=== PATIENT | male | born 1975 | race Caucasian/White ===

== ENCOUNTER → 2018-12-21 | Outpatient (CLI) | payer BC | LOC: COL.RAD 09:35 | DX: R79.89 Other specified abnormal findings of blood chemistry (principal) ==

== ENCOUNTER 2024-04-24 16:04 | Emergency (ER) | payer BC ==
[~2024-04-24] VITALS: Ht 175.3 cm; Wt 72.7 kg
[2024-04-24 16:26] VITALS: BP 148/82; TEMP 98.5
[2024-04-24] MEDS ORDERED: Rabies Immune Globulin PF 300 UNITS/2 ML VIAL IM ONE (18:45)
[2024-04-24 20:25] VITALS: PULSE 63
[2024-04-27] MEDS ORDERED: PRILOSEC 20MG20 MG PO (15:54)
[2024-04-27] MEDS ORDERED: FLONASE SENSIM9.9 ML NS (15:54)
[2024-04-27] MEDS ORDERED: CIALIS5 MG PO (15:57)
[2024-04-27] MEDS ORDERED: ZYRTEC10MGSGL PO (15:57)
[2024-04-27] MEDS ORDERED: MULTIPLE VITAMI1 CAP PO (15:58)
[2024-04-27] MEDS ORDERED: VITAMIND3 5000 PO (15:58)
== END 2024-04-24 20:25 | disposition home or self-care (01) ==
LOC: COL.ER 16:04
DX: Z20.3 Contact with and (suspected) exposure to rabies (principal)